=== PATIENT | female | born 1945 | race Caucasian/White ===

== ENCOUNTER → 2016-05-08 | Outpatient (CLI) | payer OTHER ==
[2016-05-09 15:18] LABS: HEMATOCRIT 35.5 % (37.0-47.0); HEMOGLOBIN 12.5 g/dL (12.0-16.0); MEAN CORPUSCULAR HEMOGLOBIN 30.3 PG (27-31); MEAN CORPUSCULAR HGB CONC 35.2 g/dL (33-37); MEAN PLATELET VOLUME 11.3 FL (7.4-12.2); RDW COEFFICIENT OF VARIATION 13.1 % (11.5-14.5); RED BLOOD COUNT 4.13 10^6/uL (4.20-5.40); WHITE BLOOD COUNT 17.19 10^3/uL (4.8-10.8)
[2016-05-09 15:27] LABS: BILIRUBIN,TOTAL 0.7 mg/dL (0.3-1.2); BUN/CREATININE RATIO 36.36 (6-20); CALCIUM 9.9 mg/dL (8.7-10.7); CREATININE 1.1 mg/dL (0.50-1.20); POTASSIUM 3.2 meq/L (3.8-5.2); TOTAL PROTEIN 5.9 g/dL (6.1-8.0)
[2016-05-09 17:15] LABS: BAND NEUTROPHILS % 10 % (0-10); BASOPHILS % (MANUAL) 0 % (0-1); EOSINOPHILS % (MANUAL) 0 % (0-8); LYMPHOCYTES % (MANUAL) 10 % (10-50); MONOCYTES % (MANUAL) 5 % (0-12); NEUTROPHILS % (MANUAL) 75 % (50-80); PLATELET MORPHOLOGY COMMENT NORMAL MORPHOLOGY (NORM)
== END ==
LOC: LAB 13:21
PROVIDERS: ATTEND Physician Assistant Medical
DX: E86.0 Dehydration (principal)
CPT/HCPCS: 80053; 85007

== ENCOUNTER 2016-05-15 11:38 | Emergency (ER) | payer OTHER ==
[2016-05-15] MEDS ORDERED: NORMAL SALINE 10 ML SYRINGE FLUSH IVP PRN (12:01)
[2016-05-15] MEDS ORDERED: Sodium Chloride 0.9% 1,000 ML PRIMARY IV ONE (12:01)
[2016-05-15 12:21] LABS: BASOPHILS # (AUTO) 0.03 10*3/UL; BASOPHILS % (AUTO) 0.3 % (0-1); EOSINOPHILS % (AUTO) 0.3 % (0-8); HEMATOCRIT 36.1 % (37.0-47.0); HEMOGLOBIN 12.4 g/dL (12.0-16.0); IMM GRAN % (AUTO) 1.3 % (0-5); IMM GRAN# (AUTO) 0.15 10*3/UL; LYMPHOCYTES # (AUTO) 1.46 10*3/uL; LYMPHOCYTES % (AUTO) 12.7 % (10-50); MEAN CORPUSCULAR HEMOGLOBIN 30.2 PG (27-31); MEAN CORPUSCULAR HGB CONC 34.3 g/dL (33-37); MEAN PLATELET VOLUME 8.8 FL (7.4-12.2); MONOCYTES # (AUTO) 1.18 10*3/UL (0.3-0.8); MONOCYTES % (AUTO) 10.2 % (5-15); NEUTROPHILS # (AUTO) 8.67 10*3/UL; NEUTROPHILS % (AUTO) 75.2 % (50-80); RDW COEFFICIENT OF VARIATION 13.7 % (11.5-14.5); RED BLOOD COUNT 4.11 10^6/uL (4.20-5.40); WHITE BLOOD COUNT 11.52 10^3/uL (4.8-10.8)
[2016-05-15 12:22] VITALS: RESP 20; TEMP 97.4
[2016-05-15 12:22] LABS: PLATELET MORPHOLOGY COMMENT NORMAL MORPHOLOGY (NORM)
[2016-05-15 12:35] LABS: ASPARTATE AMINO TRANSFERASE 18 IU/L (8-39); BILIRUBIN,TOTAL 0.5 mg/dL (0.3-1.2); BLOOD UREA NITROGEN 14 mg/dL (7-22); CHLORIDE 99 meq/L (98-112); CREATININE 0.8 mg/dL (0.50-1.20); EST GLOMERULAR FILTRATION > 60 (>60 ml/min/1.73m(2)); GLUCOSE 102 mg/dL (78-110); POTASSIUM 3.6 meq/L (3.8-5.2); SODIUM 131 meq/L (135-145); TOTAL PROTEIN 6.8 g/dL (6.1-8.0)
[2016-05-15 12:41] LABS: AMYLASE < 30 U/L (30-110)
[2016-05-15 13:15] LABS: BILIRUBIN,URINE NEGATIVE (NEG); CLARITY,URINE CLEAR (CLEAR); GLUCOSE, URINE (UA) NEGATIVE (NEG); LEUKOCYTE ESTERASE ,URINE NEGATIVE (NEG); NITRATE,URINE NEGATIVE (NEG); OCCULT BLOOD,URINE NEGATIVE (NEG); PROTEIN,URINE 30 mg/dl (NEG)
[2016-05-15 13:16] LABS: URINE SAMPLE TYPE VOIDED SPECIMEN
[2016-05-15 13:22] LABS: SQUAMOUS EPITHELIAL CELL,UR MANY; WBC,URINE 0-2
--- NOTE | 2016-05-15 15:07 | PDOC ---
General Adult HPI - General Chief Complaint: General Medical Stated Complaint: sick for three weeks, ruq pain Date Seen by Provider: 05/15/16 Time Seen by Provider: 11:45 Source: POSITIVE: Patient Exam Limitations: POSITIVE: No limitations Nurse's Notes Reviewed & Considered: Yes - History of Present Illness Initial Comment: The patient is a 70-year-old female. She states that for the past 2 weeks she has had some cough and "flu symptoms"for which she has been treated by a physician underground repairer in [facility]. She states she has been on 2 courses of oral antibiotics. For the last several weeks she's also had some right sided abdominal pain, primarily in the right lower abdomen. She saw her physician social research assistant today who palpated a possible mass in the right lower abdomen. She was therefore sent to the emergency room for further evaluation and treatment. She states this abdominal discomfort has been worse for the past 4-5 days and she thinks it might be exacerbated by swallowing and eating. She has no history of abdominal surgery. She has a history of hypertension and hypercholesterolemia. No allergies. Have you received a tetanus shot in the past 10 years?: No Body Location Affected: REPORTS: Abdomen Timing: REPORTS: Constant Duration: >1 week Severity: Moderate Quality: REPORTS: "Pain" Context: DENIES: None, Sitting, Standing, Activity, Emotional stress, Coughing, Recent Trauma, Recent Surgery, Sleep, Rest, Lifting, Turning, Bending, Fall, Near Fall, Other Modifying Factors: improves with: Nothing Similar Symptoms Previously: Yes (as above) Recent Care Received: REPORTS: Recently Seen, Treated by MD (As above) Any Prior Injuries Related to Current Complaint?: No - Patient Home Medications Home Medications: Home Medications Omeprazole DR [PriLOSEC] 20 mg PO DAILY 05/02/11 Lisinopril/Hydrochlorothiazide [Lisinopril-Hctz 20-12.5 Mg Tab] 1 each PO BID # 180 tab 08/15/15 Pravastatin Sodium [Pravachol] 40 mg PO DAILY #90 tab 08/15/15 Azithromycin 250 mg PO DAILY #6 tab 05/10/16 - Patient Allergies Allergies/Adverse Reactions: Allergies Allergy/AdvReac Type Severity Reaction Status Date / Time No Known Allergies Allergy Verified 05/15/16 11:53 Past Medical History - heen HEENT History: Dentures/Partials Additional HEENT History: LOWER FRONT PARTIAL Cardiovascular History: Hypertension, Hyperlipidemia Respiratory History: Denies History Gastrointestinal History: GERD Genitourinary History: Recurrent UTI Endocrine History: Denies History Musculoskeletal History: Denies History Neurological History: Denies History Blood Disorders: Denies History Psychiatric History: Denies History Female Reproductive History: Denies History Obstetrical History: Denies History Cancer History: Denies History In Past Year Been Physically Harmed or Verbally Threatened: No History of MDRO: No Tobacco Use: Current Every Day Smoker Alcohol Use: None Substance Use Type: None Previous Surgical History: No Significant Family History: No pertinent family hx Past Medical History Reviewed: Reviewed - No Changes ROS - Limitations ROS Limitations: No Limitations Constitution: REPORTS: Denies Symptoms Cardiovascular: REPORTS: Denies Cardiac Symptoms Respiratory: REPORTS: Cough Productive (Recently treated for URI symptoms. No cough presently. Patient has had no fevers.) Neurological: REPORTS: Denies Neuro Symptoms Gastrointestinal: REPORTS: Abdominal Pain Endocrine: REPORTS: Denies Symptoms Musculoskeletal: REPORTS: Denies MS Symptoms Genitourinary: REPORTS: Denies Symptoms Eyes: REPORTS: Denies Symptoms ENT: REPORTS: Denies Symptoms Skin: REPORTS: Denies Skin Symptoms Lympathic: REPORTS: Denies Lympathic Symptoms Immunologic: POSITIVE: Denies Symptoms Psychiatric: POSITIVE: Denies Psych Symptoms General Adult Exam - General Appearance General Appearance: POSITIVE: Alert, Cooperative, No Acute Distress, No Evidence of Trauma - HEENT HEENT: POSITIVE: Head Inspection Nml, Eyes Inspection Nml, Ears Inspection Nml, Nose Inspection Nml, Oral/Dental Inspect. Nml, Pharynx Inspect. Nml, PERRL, EOMI - Pupils Pupil Size: 4 mm: Bilateral (PERRLA) - Neck Neck: POSITIVE: Normal Inspection, Thyroid Normal - Respiratory Respiratory: POSITIVE: No Respiratory Distress, Breath Sounds Normal, Chest Non- Tender - Cardiovascular Cardiovascular: POSITIVE: Regular Rate & Rhythm, No Murmur, No Gallop, PMI Normal Peripheral Pulses: Radial (R): 2+, Radial (L): 2+ - Abdomen Abdomen: Soft: (All Quadrants), Normal Bowel Sounds: (All Quadrants), Denies Tenderness: (RUQ), (LUQ), (LLQ), No Splenomegaly: (All Quadrants), No Hepatomegaly: (All Quadrants), No Guarding: (All Quadrants), No Rebound: (All Quadrants), No Palpable Pulse: (All Quadrants), No Palpabale Mass: (RUQ), (LUQ) , (LLQ), No Distention: (All Quadrants), No Rigidity: (All Quadrants), Tenderness Noted: (RLQ), Palpable Mass Noted: (RLQ) Additional Abdominal Details: Abdominal examination shows bowel sounds to be active. There is a palpable mass in the right lower abdominal quadrant which is somewhat tender on palpation. No rebound. - Back Back: POSITIVE: Normal Inspection - Skin Skin: POSITIVE: Normal Color, Warm, Dry, No Rash - Extremities Extremity: Non-Tender: (All Extremities), Normal ROM: (All Extremities), Normal Inspection: (All Extremities) - Neurological / Psychological Neurological: POSITIVE: Oriented X3, signal operator technical Normal As Tested, Motor Normal, Sensation Normal, 5, 6 Images - Complete Complete: 1 - Palpable mass with some tenderness General Adult Progress - Results Reviewed by me Xrays/CTs/US Reviewed by me: Yes Discussed with Radiologist: Yes Radiology Findings: 20 cm x 20 cm x 12 cm mass in right abdominal quadrant, radiographically separate from the uterus and adnexa Lab Results Reviewed: Yes Lab Results:: Laboratory Results 05/15/16 05/15/16 Range/Units 12:12 13:12 WBC 11.52 H (4.8-10.8) 10^3/uL RBC 4.11 L (4.20-5.40) 10^6/uL Hgb 12.4 (12.0-16.0) g/dL Hct 36.1 L (37.0-47.0) % MCV 87.8 (81-99) FL MCH 30.2 (27-31) PG MCHC 34.3 (33-37) g/dL RDW Std Deviation 43.2 (39-50) fL RDW Coeff of Anthony 13.7 (11.5-14.5) % Plt Count 440 H (140-350) 10*3/uL MPV 8.8 (7.4-12.2) FL Immature Gran % (Auto) 1.3 (0-5) % Neut % (Auto) 75.2 (50-80) % Lymph % (Auto) 12.7 (10-50) % [place] % (Auto) 10.2 (5-15) % Eos % (Auto) 0.3 (0-8) % Baso % (Auto) 0.3 (0-1) % Immature Gran # (Auto) 0.15 10*3/UL Neut # (Auto) 8.67 10*3/UL Lymph # (Auto) 1.46 10*3/uL [place] # (Auto) 1.18 H (0.3-0.8) 10*3/UL Eos # (Auto) 0.03 10*3/UL Baso # (Auto) 0.03 10*3/UL WBC Morphology Comment Normal morphology (NORM) Plt Morphology Comment Normal morphology (NORM) RBC Morph Comment Normal morphology (NORM) Sodium 131 L D (135-145) meq/L Potassium 3.6 L (3.8-5.2) meq/L Chloride 99 (98-112) meq/L Carbon Dioxide 22 L (23-33) meq/L Anion Gap 10 (5-20) BUN 14 (7-22) mg/dL Creatinine 0.8 (0.50-1.20) mg/dL Estimated GFR > 60 (>60 ml/min/1.73m(2)) BUN/Creatinine Ratio 17.50 (6-20) Glucose 102 (78-110) mg/dL Calculated Osmolality 272.0 (267-292) mOsm/kg Calcium 10.0 (8.7-10.7) mg/dL Total Bilirubin 0.5 (0.3-1.2) mg/dL AST 18 (8-39) IU/L ALT 29 (9-52) IU/L Alkaline Phosphatase 60 (38-126) IU/L Total Protein 6.8 (6.1-8.0) g/dL Albumin 3.6 (3.5-4.8) g/dL Globulin 3.3 (2.50-4.10) g/dL Albumin/Globulin Ratio 1.00 L (1.3-2.0) mg/g Amylase < 30 L (30-110) U/L Lipase 56 (23-300) IU/L Ur Collection Type Voided specimen Urine Color Yellow Urine Clarity Clear (CLEAR) Urine pH 6.0 (5.0-8.5) Ur Specific [place] 1.015 (1.005-1.030) Urine Protein 30 (NEG) mg/dl Urine Glucose (UA) Negative (NEG) mg/dL Urine Ketones 40 (NEG) Urine Occult Blood Negative (NEG) Urine Nitrate Negative (NEG) Urine Bilirubin Negative (NEG) Urine Urobilinogen 1.0 (0.2) EU/dL Ur Leukocyte Esterase Negative (NEG) Urine RBC None (NONE) /hpf Urine WBC 0-2 (NONE) Ur Squamous Epith Cells Many (NONE) Ur Renal Epithelial Cell None (NONE) Urine Crystals None Urine Bacteria None (NONE) Urine Casts None (NONE) Urine Mucus Moderate (NONE) Urine Trichomonas None (NONE) Urine Yeast None (NONE) Ur Culture Indicated? Culture not set - Patient's Progress Pain Medication Addressed: POSITIVE: Not Applicable School/Work Release Addressed: POSITIVE: Not Applicable Re-Examine Time: 14:38 Re-Examine Comment: Diagnosis discussed with Dr. Grajeda, surgeon. Diagnosis also discussed with patient. Dr. Grajeda will see the patient in his office now. Patient advised to proceed directly to Dr. Grajeda's office to arrange for further evaluation and treatment. Status: POSITIVE: Unchanged, Re-Examined Antibiotics Given: No - Consult Consult (If Yes, Name of Consulting MD & Time Called): Yes (Dr. Grajeda, [id number], surgeon) Consulting MD will see pt:: POSITIVE: In Office Counseled: POSITIVE: Patient, Family ([id number]), RE: Lab Results, RE: Radiology Results, RE: DX, RE: Need for F/U Patient Care Time - Estimated PCT Patient Care Time (In Minutes): 60 Vital Signs - Recent Vital Signs Vital Signs: Vital Signs (Last 8 hours) Temp Pulse Resp BP Pulse Ox 05/15/16 11:55 97.4 F 100 20 132/72 96 - VS Reviewed Vital Signs Reviewed: Yes Discharge Clinical Impression: Abdominal mass, RLQ (right lower quadrant) Discharge Disposition: Discharged to Home Condition: Stable Patient Instructions Given at Discharge: Abdominal Pain (ED) Additional Instructions: You have a large tumor in your right lower abdomen. Please proceed directly to Dr. Grajeda's office, who will arrange for further evaluation and treatment of this problem. Return here anytime if condition worsens in any way whatsoever, or as necessary. Follow Up With: MIKAYLA PEMBERTON [Primary Care Provider] - (Proceed to Dr. Grajeda's office now for further evaluation and treatment. Return here anytime if condition worsens in any way.)
--- NOTE | 2016-05-15 15:53 | DI ---
CT ABDOMEN SCAN WITH IV CONTRAST, 05/15/2016 12:02 PM : Clinical History: Abdominal pain. Previous Exam: None at this facility. Scans are performed from the lower lung bases through the liver and kidneys with IV contrast. 70 ml o f Isovue 300 was injected IV. No oral or rectal contrast was ordered. The lung bases are clear. The liver is normal. The gallbladder is grossly normal. There is no abnorma lity of the spleen, pancreas, and adrenal glands. Both kidneys are normal in size and position. Both kidneys have benign cysts without evidence of solid tumors. There is no hydronephrosis or hydroureter . No renal or ureteral calculi are present. There are no abnormal retrocrural or periaortic nodes. No ascites is present. READING: Normal CT abdomen scan. CT PELVIS SCAN WITH IV CONTRAST, 05/15/2016 12:02 PM: Clinical History: See above. Previous Exam: None at this facility. Scans are performed from just superior to the umbilicus to the symphysis pubis with IV contrast. This is the same bolus of contrast used for the CT scans of the abdomen. There is a large mass that extends from the lower abdomen into the pelvis and measures roughly 20 cm in diameter and 10 cm in thickness and has a lobulated contour. It is inhomogeneous with areas of low density mixed with areas of higher density. The inferior aspect of the mass is causing extrinsic pre ssure on the dome of the bladder. The uterus is atrophic and both ovaries are atrophic but normal. Th e appendix is normal. The small bowel, terminal ileum, and ileocecal valve are normal. The colon is a lso normal. There is no adenopathy. There are no hernias. READIN. There is a large mass that measures 20 cm in diameter and 10 cm in thickness located in the lower abdomen and pelvis. It does not appear to be arising from the uterus or ovaries. There is no adenopa thy or ascites. This lesion appears to be contiguous with loops of bowel, but I cannot definitely say it is arising from bowel. 2. This mass has areas of decreased and increased density in inhomogeneous distribution. No obviousl y enlarged vessels are noted.
== END 2016-05-15 15:02 | disposition home or self-care (01) ==
LOC: ER 11:38
DX: R19.03 Right lower quadrant abdominal swelling, mass and lump (principal); R05 Cough; I10 Essential (primary) hypertension; R10.11 Right upper quadrant pain
CPT/HCPCS: 74177; 80053; 81001; 81003; 82150; 83690; 85025; 96360; 96361; 99283; J7030

== ENCOUNTER → 2016-07-03 | Outpatient (CLI) | payer OTHER | LOC: MMPC 11:11 | PROVIDERS: ATTEND Surgery | DX: R19.03 Right lower quadrant abdominal swelling, mass and lump (principal); Z90.722 Acquired absence of ovaries, bilateral | CPT/HCPCS: 99212; G0463 ==